=== PATIENT | female | born 1970 | race Caucasian/White ===

== ENCOUNTER 2021-07-07 09:03 | Inpatient (IN) ==
[2021-07-07] MEDS ORDERED: SODIUM CHLORIDE 0.9% 500 ML IV STA (09:34)
[2021-07-07] MEDS ORDERED: dexAMETHasone**PF** 10 MG/ML VIAL IV ONE (09:34)
--- NOTE | 2021-07-07 10:13 | XRay Report ---
XR chest 1V portable CLINICAL HISTORY: Worsening dyspnea, COVID pneumonia. COMPARISON STUDY: 07/05/2021 TECHNIQUE: 1 view of the chest FINDINGS: Single frontal view of the chest demonstrates the cardiomediastinal silhouette to be within normal li mits. Compared to the previous examination, patchy interstitial and alveolar opacities are again pres ent bilaterally. The findings are most characteristic of a viral type pneumonitis. Covid 19 pneumonia should be excluded. There is no evidence for pleural effusion. There is no evidence for vascular con gestion. There is no acute osseous pathology. IMPRESSION: Compared to the previous examination, there are again patchy interstitial and alveolar op acities bilaterally characteristic of a viral type pneumonitis and probable Covid 19 pneumonia. ACT 112: Negative or not required by law. Electronically signed by: Reji Sebastian M.D. 07/07/2021 10:12 AM
[2021-07-07 10:24] LABS: Partial Thromboplastin Time 26.5 Seconds (21.0-31.0); Prothrombin Time 10.1 Seconds (9.0-12.0)
[2021-07-07 10:27] LABS: Influenza A virus by PCR Negative (Negative); Influenza B virus by PCR Negative (Negative)
[2021-07-07 10:32] LABS: Alanine Aminotransferase 49 U/L (12-78); Albumin Level 2.7 gm/dl (3.4-5.0); Aspartate Aminotransferase 61 U/L (15-37); BUN Creatinine Ratio 17.9 (10-20); Blood Urea Nitrogen 11 mg/dl (7-18); Carbon Dioxide 28 mmol/L (21-32); Chloride 103 mmol/L (98-107); Est GFR (African American) 122.1 ml/min; Est GFR (Non-African American) 105.3 ml/min; Glucose 153 mg/dl (70-99); Potassium 3.2 mmol/L (3.5-5.1); Sodium 139 mmol/L (136-145)
[2021-07-07 10:33] LABS: Basophils # (auto) 0.01 K/uL (0-0.2); Basophils % (auto) 0.2 %; Hemoglobin 12.6 g/dL (12.0-16.0); Immature Granulocytes # (auto) 0.01 K/uL (0.00-0.02); Immature Granulocytes % (auto) 0.2 %; Lymphocytes # (auto) 0.52 K/uL (1.2-3.4); Lymphocytes % (auto) 8.5 %; Mean Corpuscular Hemoglobin 28.8 pg (25-34); Mean Corpuscular Hgb Conc 34.1 g/dL (32-36); Mean Corpuscular Volume 84.5 fL (80-100); Mean Platelet Volume 9.8 fL (7.4-10.4); Monocytes # (auto) 0.32 K/uL (0.11-0.59); Monocytes % (auto) 5.2 %; Neutrophils # (auto) 5.29 K/uL (1.4-6.5); Neutrophils % (auto) 85.9 %; Platelet Count 179 K/uL (130-400); RDW Coefficient of Variation 12.7 % (11.5-14.5); RDW Standard Deviation 39.1 fL (36.4-46.3); Red Blood Count 4.38 M/uL (4.2-5.4); White Blood Count 6.15 K/uL (4.8-10.8)
[2021-07-07 10:38] LABS: Albumin Globulin Ratio 0.6 (0.9-2); Alkaline Phosphatase 50 U/L (45-117); Bilirubin,Total 0.7 mg/dl (0.2-1); Globulin 4.2 gm/dl (2.5-4.0); Total Protein 6.9 gm/dl (6.4-8.2); Troponin I < 0.015 ng/ml (0-0.045)
[2021-07-07] MEDS ORDERED: REMDESIVIR 200 MG in SODIUM CHLORIDE 0.9% 210 ML IV STA (11:12)
[2021-07-07] MEDS ORDERED: POTASSIUM CHLORIDE / WTR 10 MEQ/100 ML PLCT IV ONE (11:14)
--- NOTE | 2021-07-07 11:26 | Emergency Department Note ---
History of Present Illness General Chief complaint: Respiratory Problems Stated complaint: COVID POSITIVE/LOW OXYGEN LEVEL Time Seen by Provider: 07/07/21 09:17 History of Present Illness Maximum Pain Intensity: 8 50-year-old female who returns to the emergency department with complaint of worsening shortness of breath, weakness and overall not feeling well after being infected with COVID-19 approximately 9 to 10 days ago. The patient reports a nonproductive cough. She denies any recent fever or chills. The patient was seen in the emergency department 2 days ago with chest x-ray showing pneumonia. The patient was provided prescriptions for an albuterol inhaler, cough medication an d prednisone. The patient has taken 3 doses of prednisone at this point. The patient reports that she does have a pulse oximeter at home, and reported that her readings this morning were between 81 and 87%. Her daughter recommended that she come to the emergency department for further reevaluation. The patient is unvaccinated for COVID-19 and influenza. Her also recently developed similar symptoms, and is awaiting COVID-19 test results. Home Medications Medication Instructions Recorded Confirmed Type albuterol sulfate 90 mcg/actuation 2 puffs INHALATION Q4H PRN #8.5 g 07/05/21 07/07/21 Rx aerosol inhaler benzonatate 200 mg capsule 200 mg PO Q6H PRN #20 cap 07/05/21 07/07/21 Rx ondansetron 4 mg disintegrating 4 mg PO Q6H PRN #20 tab 07/05/21 07/07/21 Rx tablet prednisone 20 mg tablet 20 mg PO DAILY #18 tab 07/05/21 07/07/21 Rx ibuprofen 200 mg tablet 200 mg PO Q6H PRN 07/07/21 07/07/21 History Allergies Allergy/AdvReac Type Severity Reaction Status Date / Time Penicillins Allergy Rash Unverified 07/07/21 10:16 Egg Derived AdvReac Gastrointestinal Unverified 07/07/21 10:16 Upset Past Med/Surg History Medical History Prediabetes Surgical History H/O cleft lip repair H/O: hysterectomy Family History Father Myocardial infarction Denies family history of Ovarian cancer Prostate cancer Breast cancer Colorectal cancer Social History Smoking Status: Never smoker Hx Alcohol Use: Yes Alcohol type: wine Alcohol Intake Frequency: Monthly or Less Hx Substance Use: No Preferred Language: Frisian Communication Ability: Effective Welcome Center Attendant Required: No Beliefs That Will Affect Care: None marital status: Current Living Situation: Spouse and Family current occupational status: employed current occupation: [employer] HELPER Feels Safe at Home: Yes Safety Concerns: Feels Safe At This Time Childhood Exposure to Second-Hand Smoke: Yes Dental Care, Regularly: Yes Physical Activity Frequency: Does not Exercise Seatbelt Use: always Sunscreen Use: Yes Assistive Devices: None and Glasses Review of Systems 10 system review was performed and was negative except for pertinent positives and negatives as indicated in history of present illness Physical Exam Vital Signs Vital Signs - 24 hr 07/07/21 09:08 07/07/21 09:56 07/07/21 10:23 Temperature 36.5 C Temperature Source Temporal Artery Scan Pulse Rate 88 Pulse Rate [Apical] 74 Respiratory Rate 20 20 Respiratory Rate [Exercises] 24 Respiratory Effort / Characteristics Spontaneous Respiratory Depth Normal Respiratory Pattern Regular Blood Pressure 101/71 Blood Pressure [Right Arm] 111/72 Blood Pressure Mean 81 Blood Pressure Mean [Right Arm] 85 Blood Pressure Position [Right Arm] Sitting Pulse Oximetry 91 93 Pulse Oximetry [Exercises] 92 Oxygen Delivery Method Room Air Room Air Room Air Sepsis Recent Fever Within 48 Hours Yes Sepsis New/Unexplained Change in Mental Status No Sepsis Action Taken by Nursing No Action Required 07/07/21 10:24 Temperature Temperature Source Pulse Rate Pulse Rate [Apical] 71 Respiratory Rate Respiratory Rate [Exercises] Respiratory Effort / Characteristics Respiratory Depth Respiratory Pattern Blood Pressure Blood Pressure [Right Arm] 113/73 Blood Pressure Mean Blood Pressure Mean [Right Arm] 86 Blood Pressure Position [Right Arm] Pulse Oximetry Pulse Oximetry [Exercises] Oxygen Delivery Method Sepsis Recent Fever Within 48 Hours Sepsis New/Unexplained Change in Mental Status Sepsis Action Taken by Nursing CONSTITUTIONAL: Healthy and well nourished. Patient does not appear acutely ill or toxic. HEENT: Normocephalic, atraumatic. No rhinorrhea or conjunctival injection. NECK: Full active range of motion without discomfort. LYMPHATICS: No cervical chain adenopathy. RESPIRATORY: Clear to auscultation bilaterally with no wheezing, crackles, rhonchi or stridor. CARDIOVASCULAR: Regular rate and rhythm with no murmurs, rubs or gallops. GASTROINTESTINAL: Bowel sounds present in all quadrants. Soft and nontender to palpation. MUSCULOSKELETAL: Full range of motion of all joints without discomfort. INTEGUMENTARY: No rash or other significant dermatologic conditions noted. HEMATOLOGIC: No ecchymosis or petechiae. PSYCHIATRIC: Positive affect. NEUROLOGIC: No focal neurologic deficits noted. Course Course Patient history and physical exam were performed. Nurses notes were reviewed. Vital signs were reviewed, showing a pulse ox of 91% on room air in triage. The patient was afebrile and not tachycardic. Patient did not appear in any acute respiratory distress on my exam. Given her hypoxia at home, I did explain that she would likely require admission for further management; the patient was in agreement to do so. IV access was established, and labs were drawn. The patient was hydrated with a normal saline 500 cc bolus. She was administered Decadron 10 mg IVP. An ECG was performed and was normal. Portable chest ray continues to show pneumonia without significant worsening when compared to her prior chest x-ray. Review of labs shows a normal white count, as compared to a leukopenia and thrombocytopenia from yesterday. Patient is hypokalemia at 3.2 with an elevated glucose of 153. AST is also mildly elevated at 61. Patient did have a positive COVID-19 PCR test, and negative influenza screen. The case was further discussed with the [facility] hospitalist service, who will be admitting the patient. The hospitalist service also indicated that they would order a K rider for the hypokalemia. Please see their dictation for further treatment and final disposition. Administered Medications Enoxaparin Sodium (Enoxaparin Inj 30 Mg/0.3 Ml Syr) 30 mg SQ Q12 [facility] Stop: 08/06/21 12:29 Last Admin: 07/07/21 14:13 Dose: 30 mg Documented by: [id number] Sodium Chloride (Sodium Chloride 0.9% 10ml Flush) 30 ml IV DAILY@1200 [facility] Stop: 07/11/21 12:01 Last Admin: 07/07/21 12:48 Dose: 30 ml Documented by: [id number] Discontinued Medications Dexamethasone Sodium Phosphate (DexamethasonePf 10 Mg/Ml Vial) 10 mg IV NOW ONE Stop: 07/07/21 09:35 Last Admin: 07/07/21 09:54 Dose: 10 mg Documented by: [id number] Sodium Chloride (Nss) 500 mls @ 999 mls/hr IV .Q31M STA Stop: 07/07/21 10:04 Last Infusion: 07/07/21 10:24 Dose: 0 mls/hr Documented by: [id number] Admin: 07/07/21 09:53 Dose: 999 mls/hr Documented by: [id number] Remdesivir 200 mg/ Sodium (Chloride) 250 mls @ 125 mls/hr IV ONE STA; Protocol Stop: 07/07/21 13:11 Last Infusion: 07/07/21 15:18 Dose: 0 mls/hr Documented by: [id number] Admin: 07/07/21 12:48 Dose: 125 mls/hr Documented by: [id number] Potassium Chloride (K [place] / Wtr) 10 meq in 100 mls @ 100 mls/hr IV Q1H ONE Stop: 07/07/21 12:13 Last Infusion: 07/07/21 12:54 Dose: 0 mls/hr Documented by: [id number] Admin: 07/07/21 11:26 Dose: 100 mls/hr Documented by: [id number] Potassium Chloride (Potassium Chloride 20 Meq/15 Ml Udc) 40 meq PO ONE ONE Stop: 07/07/21 14:01 Last Admin: 07/07/21 14:14 Dose: 40 meq Documented by: [id number] Medical Decision Making Medical Records Attestation: I reviewed the patient's medical records. Home Medications Current Medication List: was personally reviewed by me Laboratory Data Attestation: I reviewed the patient's lab results. Result diagrams: 07/07/21 10:05 07/07/21 10:05 Lab Results 07/07/21 07/07/21 07/07/21 Range/Units 10:00 10:00 10:05 WBC 6.15 (4.8-10.8) K/uL RBC 4.38 (4.2-5.4) M/uL Hgb 12.6 (12.0-16.0) g/dL Hct 37.0 (37-47) % MCV 84.5 (80-100) fL MCH 28.8 (25-34) pg MCHC 34.1 (32-36) g/dL RDW Std Deviation 39.1 (36.4-46.3) fL RDW Coeff of Hannah 12.7 (11.5-14.5) % Plt Count 179 D (130-400) K/uL MPV 9.8 (7.4-10.4) fL Immature Gran % (Auto) 0.2 % Neut % (Auto) 85.9 % Lymph % (Auto) 8.5 % Barbour % (Auto) 5.2 % Eos % (Auto) 0.0 % Baso % (Auto) 0.2 % Neut # (Auto) 5.29 (1.4-6.5) K/uL Lymph # (Auto) 0.52 L (1.2-3.4) K/uL Barbour # (Auto) 0.32 (0.11-0.59) K/uL Eos # (Auto) 0.00 (0-0.5) K/uL Baso # (Auto) 0.01 (0-0.2) K/uL Immature Gran # (Auto) 0.01 (0.00-0.02) K/uL PT (9.0-12.0) Seconds INR (0.9-1.1) APTT (21.0-31.0) Seconds PTT Ratio Sodium (136-145) mmol/L Potassium (3.5-5.1) mmol/L Chloride (98-107) mmol/L Carbon Dioxide (21-32) mmol/L Anion Gap (3-11) BUN (7-18) mg/dl Creatinine (0.6-1.2) mg/dl Est Cr Clr Drug Dosing ml/min Est GFR ( Amer) ml/min Est GFR (Non-Af Amer) ml/min BUN/Creatinine Ratio (10-20) Glucose (70-99) mg/dl Calcium (8.5-10.1) mg/dl Total Bilirubin (0.2-1) mg/dl AST (15-37) U/L ALT (12-78) U/L Alkaline Phosphatase (45-117) U/L Troponin I (0-0.045) ng/ml Total Protein (6.4-8.2) gm/dl Albumin (3.4-5.0) gm/dl Globulin (2.5-4.0) gm/dl Albumin/Globulin Ratio (0.9-2) SARS-CoV-2 (PCR) POSITIVE A* (Negative) Influ A Molecular Assay Negative (Negative) Influ B Molecular Assay Negative (Negative) 07/07/21 07/07/21 Range/Units 10:05 10:05 WBC (4.8-10.8) K/uL RBC (4.2-5.4) M/uL Hgb (12.0-16.0) g/dL Hct (37-47) % MCV (80-100) fL MCH (25-34) pg MCHC (32-36) g/dL RDW Std Deviation (36.4-46.3) fL RDW Coeff of Hannah (11.5-14.5) % Plt Count (130-400) K/uL MPV (7.4-10.4) fL Immature Gran % (Auto) % Neut % (Auto) % Lymph % (Auto) % Barbour % (Auto) % Eos % (Auto) % Baso % (Auto) % Neut # (Auto) (1.4-6.5) K/uL Lymph # (Auto) (1.2-3.4) K/uL [place]bour # (Auto) (0.11-0.59) K/uL Eos # (Auto) (0-0.5) K/uL Baso # (Auto) (0-0.2) K/uL Immature Gran # (Auto) (0.00-0.02) K/uL PT 10.1 (9.0-12.0) Seconds INR 1.0 (0.9-1.1) APTT 26.5 (21.0-31.0) Seconds PTT Ratio 1.0 Sodium 139 (136-145) mmol/L Potassium 3.2 L (3.5-5.1) mmol/L Chloride 103 (98-107) mmol/L Carbon Dioxide 28 (21-32) mmol/L Anion Gap 8.0 (3-11) BUN 11 (7-18) mg/dl Creatinine 0.63 (0.6-1.2) mg/dl Est Cr Clr Drug Dosing 124.0 ml/min Est GFR ( Amer) 122.1 ml/min Est GFR (Non-Af Amer) 105.3 ml/min BUN/Creatinine Ratio 17.9 (10-20) Glucose 153 H (70-99) mg/dl Calcium 8.0 L (8.5-10.1) mg/dl Total Bilirubin 0.7 (0.2-1) mg/dl AST 61 H (15-37) U/L ALT 49 (12-78) U/L Alkaline Phosphatase 50 (45-117) U/L Troponin I < 0.015 (0-0.045) ng/ml Total Protein 6.9 (6.4-8.2) gm/dl Albumin 2.7 L (3.4-5.0) gm/dl Globulin 4.2 H (2.5-4.0) gm/dl Albumin/Globulin Ratio 0.6 L (0.9-2) SARS-CoV-2 (PCR) (Negative) Influ A Molecular Assay (Negative) Influ B Molecular Assay (Negative) Imaging Data Attestation: I personally reviewed and interpreted this imaging study as follows: My Impression: My interpretation of reportable chest x-ray shows a probable patchy pneumonia without evidence for pneumothorax or significant cardiac prominence. Radiologist report was also reviewed. Radiologist's Impression: Chest X-Ray 07/07/21 09:35 XR chest 1V portable CLINICAL HISTORY: Worsening dyspnea, COVID pneumonia. COMPARISON STUDY: 07/05/2021 TECHNIQUE: 1 view of the chest FINDINGS: Single frontal view of the chest demonstrates the cardiomediastinal silhouette to be within normal limits. Compared to the previous examination, patchy in terstitial and alveolar opacities are again present bilaterally. The findings are most characteristic of a viral type pneumonitis. Covid 19 pneumonia should be excluded. There is no evidence for pleural effusion. There is no evidence for vascular congestion. There is no acute osseous pathology. IMPRESSION: Compared to the previous examination, there are again patchy inter stitial and alveolar opacities bilaterally characteristic of a viral type pneumonitis and probable Covid 19 pneumonia. ACT 112: Negative or not required by law. Electronically signed by: eRji Sebastian M.D. 07/07/2021 10:12 AM ECG Data Attestation: I personally reviewed and interpreted this ECG as follows: Indication: + chest pain, + diaphoresis and + SOB/dyspnea Rate (beats per minute): 77 Rhythm: + normal sinus ECG Intervals/blocks: + Normal QRS, + Normal QT and + Normal AL ECG [place]: + Normal ECG ST segments: + Normal ST segments Comparison ECG Date: no prior available Blood Pressure Blood Pressure Findings: Normal blood pressure MDM Narrative Patient presents emergency department with complaint of worsening symptoms secondary to COVID-19 infection. The patient reports an O2 saturation level of between 81 and 87% at home. Even with trial ambulation in the emergency department, her lowest O2 saturation was 91% on room air in triage. I do feel that the patient warrants admission with additional treatment, including remdesivir, corticosteroids and breathing treatments as needed. Patient also has a mild hypokalemia which should be easily corrected. I do not suspect other etiologies such as acute cardiac event or pulmonary embolus. X-ray does not show evidence for pneumothorax. Impression & Plan Hypoxia, Pneumonia due to COVID-19 virus, Acute hypokalemia Discharge Plan Visit Data Chief Complaint: Respiratory Problems Stated Complaint: COVID POSITIVE/LOW OXYGEN LEVEL ED Provider: Mayra Torrez ED Midlevel Provider: Kevin Piña Discharge Problem: Hypoxia, Pneumonia due to COVID-19 virus, Acute hypokalemia Patient Disposition: Admitted As Inpatient Discharge Instructions Interventions: ED Discharge Assessment Last Done: 07/07/21 12:05
--- NOTE | 2021-07-07 11:32 | History & Physical Report ---
Date of Service July 07, 2021 Assessment & Plan (1) Pneumonia due to COVID-19 virus: (2) Hypoxia: (3) Prediabetes: (4) Hypokalemia: Plan: COVID pneumonia with hypoxia: - Tested positive for COVID on: 07/02 - symptoms onset on: 06/28 - CXR: finding suggestive of viral pneumonia -Normal GFR but slight increase in AST -will start the pt on Remdesivir and Dexamethasone -for now pt is maintaining SpO2>93 in room air -encourage frequent change of position (including proning) -daily CMP and CRP -DVT ppx ordered HypoK+: -repleted Diet: DMII DVT PPx: Lovenox Code Status:FULL CODE Emergency Contact: Daughter- Declan [phone] History of Present Illness Chief Complaint: SOB Primary Care Provider: NO PCP Pt is a 50 y/o F with hx of prediabetes, cleft lip s/p repair came in to the ER with worsening SOB, cough and chest pressure. She was dx with COVID on 07/02 and her symptoms started on 06/28. She was seen in the ER on 07/05 and sent home on prednisone taper and Zofran. Per pt Zofran helped a lot with N/V and diarrhea but her SOB gotten worse. Denied any hx of COPD/Asthma/Smoking. In the ER pt received 1/2L NS and Dexamethason 10mg IV Allergies Allergy/AdvReac Type Severity Reaction Status Date / Time Penicillins Allergy Rash Unverified 07/07/21 10:16 Egg Derived AdvReac Gastrointestinal Unverified 07/07/21 10:16 Upset Home Medications Medication Instructions Recorded Confirmed Type albuterol sulfate 90 mcg/actuation 2 puffs INHALATION Q4H PRN #8.5 g 07/05/21 07/07/21 Rx aerosol inhaler benzonatate 200 mg capsule 200 mg PO Q6H PRN #20 cap 07/05/21 07/07/21 Rx ondansetron 4 mg disintegrating 4 mg PO Q6H PRN #20 tab 07/05/21 07/07/21 Rx tablet prednisone 20 mg tablet 20 mg PO DAILY #18 tab 07/05/21 07/07/21 Rx ibuprofen 200 mg tablet 200 mg PO Q6H PRN 07/07/21 07/07/21 History Past Med/Surg History Medical History Prediabetes Surgical History H/O cleft lip repair H/O: hysterectomy Family History Father Myocardial infarction Denies family history of Ovarian cancer Prostate cancer Breast cancer Colorectal cancer Social History Smoking Status: Never smoker Hx Alcohol Use: Yes Alcohol type: wine Alcohol Intake Frequency: Monthly or Less Hx Substance Use: No Preferred Language: Hungarian Communication Ability: Effective marital status: Current Living Situation: Spouse and Family current occupational status: employed current occupation: BACK DIGGER OPERATOR Feels Safe at Home: Yes Childhood Exposure to Second-Hand Smoke: Yes Dental Care, Regularly: Yes Physical Activity Frequency: Does not Exercise Seatbelt Use: always Sunscreen Use: Yes Review of Systems Review of Systems: At least 10 Review of systems were reviewed and all negative except as indicated in HPI Physical Exam Physical Exam: General:. NAD, well developed, well nourished, average body habitus HEENT:. Normocephalic and atraumatic, Normal Conjunctiva, EOMI, Sclera is non- icteric Lungs:.good air entry b/l with b/l lower lobe rales Heart:. Normal S1, S2, no murmur Abdominal:. ND, Soft, NT MSK:. No deformities of UE and LE, No leg edema Psych:. AAOx3, normal affect Results & Data Results & Data ([facility]) Vital Signs (Past 12 Hours) Vital Signs Temp Pulse Pulse Resp Resp BP BP 07/07/21 11:05 68 20 113/73 07/07/21 10:24 71 113/73 07/07/21 10:23 24 07/07/21 09:56 74 20 111/72 07/07/21 09:08 36.5 C 88 20 101/71 Pulse Ox Pulse Ox 07/07/21 11:05 93 07/07/21 10:24 07/07/21 10:23 92 07/07/21 09:56 93 07/07/21 09:08 91 Laboratory Results Short CBC 07/07/21 Range/Units 10:05 WBC 6.15 (4.8-10.8) K/uL Hgb 12.6 (12.0-16.0) g/dL Hct 37.0 (37-47) % Plt Count 179 D (130-400) K/uL BMP 07/07/21 10:05 Sodium 139 Potassium 3.2 L Chloride 103 Carbon Dioxide 28 BUN 11 Creatinine 0.63 Glucose 153 H Calcium 8.0 L Cardiac Enzymes 07/07/21 Range/Units 10:05 Troponin I < 0.015 (0-0.045) ng/ml Liver Function 07/07/21 Range/Units 10:05 Total Bilirubin 0.7 (0.2-1) mg/dl AST 61 H (15-37) U/L ALT 49 (12-78) U/L Alkaline Phosphatase 50 (45-117) U/L Albumin 2.7 L (3.4-5.0) gm/dl Diagnostic Findings Chest X-Ray 07/07/21 09:35 XR chest 1V portable CLINICAL HISTORY: Worsening dyspnea, COVID pneumonia. COMPARISON STUDY: 07/05/2021 TECHNIQUE: 1 view of the chest FINDINGS: Single frontal view of the chest demonstrates the cardiomediastinal silhouette to be within normal limits. Compared to the previous examination, patchy interstitial and alveolar opacities are again present bilaterally. The findings are most characteristic of a viral type pneumonitis. Covid 19 pneumonia should be excluded. There is no evidence for pleural effusion. There is no evidence for vascular congestion. There is no acute osseous pathology. IMPRESSION: Compared to the previous examination, there are again patchy interstitial and alveolar opacities bilaterally characteristic of a viral type pneumonitis and probable Covid 19 pneumonia. ACT 112: Negative or not required by law. Electronically signed by: Reji Sebastian M.D. 07/07/2021 10:12 AM Code Status & VTE Plan Code Status FULL CODE VTE Prophylaxis Plan VTE Prophylaxis will be ordered: Yes
[2021-07-07 11:42] LABS: Appearance Urine Clear (Clear); Bacteria Urine Automated Negative (Negative); Bilirubin Urine Negative (Negative); Blood Urine 1+ (Negative); Cast Urine Automated 0 /lpf (0-5); Color Urine Yellow; Epithelial Cell Urine Auto 20-30 /lpf (0-5); Glucose Urine UA Negative (Negative); Ketones Urine Negative (Negative); Leukocyte Esterase Urine Negative (Negative); Nitrite Urine Negative (Negative); Protein Urine 1+ (Negative); RBC Urine Automated 0-4 /hpf (0-4); Specific Gravity Urine 1.007 (1.000-1.030); Urobilinogen Urine Negative (Negative)
[2021-07-07] MEDS: SODIUM CHLORIDE 0.9% 10ML FLUSH IV SCH (12:48)
[2021-07-07] MEDS ORDERED: POTASSIUM CHLORIDE 20 MEQ/15 ML UDC PO ONE (14:00)
[2021-07-07] MEDS: ENOXAPARIN INJ 30 MG/0.3 ML SYR SQ SCH ×2 (14:13→20:27)
[2021-07-08] MEDS: ONDANSETRON INJ 2 MG/ML 2 ML VIAL IV PRN ×2 (04:11→21:26)
[2021-07-08 08:26] LABS: Basophils # (auto) 0.01 K/uL (0-0.2); Basophils % (auto) 0.2 %; Hematocrit (blood only) 38.1 % (37-47); Hemoglobin 12.5 g/dL (12.0-16.0); Immature Granulocytes # (auto) 0.03 K/uL (0.00-0.02); Immature Granulocytes % (auto) 0.5 %; Lymphocytes # (auto) 0.63 K/uL (1.2-3.4); Lymphocytes % (auto) 11.5 %; Mean Corpuscular Hemoglobin 28.3 pg (25-34); Mean Corpuscular Hgb Conc 32.8 g/dL (32-36); Mean Corpuscular Volume 86.4 fL (80-100); Mean Platelet Volume 9.9 fL (7.4-10.4); Monocytes # (auto) 0.48 K/uL (0.11-0.59); Monocytes % (auto) 8.8 %; Neutrophils # (auto) 4.31 K/uL (1.4-6.5); Platelet Count 201 K/uL (130-400); RDW Coefficient of Variation 12.9 % (11.5-14.5); RDW Standard Deviation 41.5 fL (36.4-46.3); Red Blood Count 4.41 M/uL (4.2-5.4); White Blood Count 5.46 K/uL (4.8-10.8)
[2021-07-08] MEDS: dexAMETHasone 6 MG in SYRINGE 0 ML IV SCH (08:56)
[2021-07-08] MEDS: ENOXAPARIN INJ 30 MG/0.3 ML SYR SQ SCH ×2 (08:56→21:26)
[2021-07-08 09:09] LABS: Albumin Globulin Ratio 0.6 (0.9-2); Albumin Level 2.6 gm/dl (3.4-5.0); BUN Creatinine Ratio 20.8 (10-20); Bilirubin,Total 0.5 mg/dl (0.2-1); C Reactive Protein 6.34 mg/dl (0-0.29); Calcium 8.3 mg/dl (8.5-10.1); Creatinine Clr Calc Pharmacy 125.9 ml/min; Est GFR (African American) 122.7 ml/min; Est GFR (Non-African American) 105.9 ml/min; Globulin 4.5 gm/dl (2.5-4.0); Potassium 3.9 mmol/L (3.5-5.1); Total Protein 7.1 gm/dl (6.4-8.2)
[2021-07-08] MEDS: SODIUM CHLORIDE 0.9% 10ML FLUSH IV SCH (11:38)
[2021-07-08] MEDS: REMDESIVIR 100 MG in SODIUM CHLORIDE 0.9% 230 ML IV SCH (11:38)
--- NOTE | 2021-07-08 13:27 | Hospitalist Progress Note ---
Date of Service July 08, 2021 Assessment & Plan (1) Pneumonia due to COVID-19 virus: (2) Hypoxia: (3) Prediabetes: (4) Hypokalemia: Plan: COVID pneumonia Acute hypoxic respiratory failure: Symptoms started on 06/28/2021. Tested positive for COVID on: 07/02 CXR: finding suggestive of viral pneumonia Normal GFR but slight increase in AST Continue dexamethasone and remdesivir. Continue to monitor LFTs and inflammatory markers Educated on self proning. Incentive spirometry and flutter Continue oxygen supplementation and wean as tolerated Monitor inflammatory markers Hypokalemia Repleted and resolved Monitor Diet: DMII DVT PPx: Lovenox Code Status:FULL CODE Emergency Contact: David Manriquez [phone] Admission and Anticipated Discharge Date Admission Date: July 07, 2021 Subjective 50-year-old woman with history of prediabetes, cleft lip status post repair who presented with cough, worsening shortness of breath and chest pressure. Being managed for acute hypoxic respiratory failure due to COVID-19 pneumonia. Seen and examined this afternoon. Reports significant improvements in shortness of breath. Denies any chest pain Reports some nausea and poor appetite. Denies any abdominal pain, diarrhea Denies any palpitations, dizziness Denies any dysuria, frequency, urgency Physical Exam Constitutional: + well hydrated; no acute distress Eyes: PERRL, conjunctivae normal, anicteric sclerae ENMT: external ear and nose normal, oropharynx normal Respiratory: Not in respiratory distress, on 4 L/min nasal oxygen, diminished breath sounds bilaterally Cardiovascular: RRR, no murmur, no edema Gastrointestinal (Abdomen): normal bowel sounds, soft, nontender, no hepatosplenomegaly Musculoskeletal: no cyanosis or clubbing, extremities motor strength 5/5 Neurologic: PERRL, EOMI, accommodation nl, no face palsy, no dysarthria Psychiatric: A+Ox3, euthymic affect Results & Data Results & Data ([facility]) Vital Signs (Past 12 Hours) Vital Signs Temp Pulse Pulse Resp BP Pulse Ox 07/08/21 11:29 36.6 C 65 20 118/77 94 07/08/21 10:10 57 L 07/08/21 07:37 36.5 C 67 18 109/78 93 07/08/21 03:53 36.9 C 72 16 116/76 98 Laboratory Results Abnormal lab results 07/08/21 07/08/21 Range/Units 07:56 07:56 Lymph # (Auto) 0.63 L (1.2-3.4) K/uL Immature Gran # (Auto) 0.03 H (0.00-0.02) K/uL BUN/Creatinine Ratio 20.8 H (10-20) Glucose 152 H (70-99) mg/dl Calcium 8.3 L (8.5-10.1) mg/dl AST 38 H (15-37) U/L C-Reactive Protein 6.34 H (0-0.29) mg/dl Albumin 2.6 L (3.4-5.0) gm/dl Globulin 4.5 H (2.5-4.0) gm/dl Albumin/Globulin Ratio 0.6 L (0.9-2)
--- NOTE | 2021-07-08 15:35 | Electrocardiogram Report ---
Test Reason : Blood Pressure : / mmHG Vent. Rate : 077 BPM Atrial Rate : 077 BPM P-R Int : 146 ms QRS Dur : 086 ms QT Int : 424 ms P-R-T Axes : 029 012 011 degrees QTc Int : 479 ms Normal sinus rhythm Normal ECG No previous ECGs available Confirmed by Inder Alfredo ([id number]) on 07/08/2021 3:35:09 PM Referred By: REFERRED SELF Confirmed By:Inder Alfredo
[2021-07-09 07:23] LABS: Hematocrit (blood only) 36.1 % (37-47); Hemoglobin 11.8 g/dL (12.0-16.0); Mean Corpuscular Hemoglobin 28.4 pg (25-34); Mean Corpuscular Hgb Conc 32.7 g/dL (32-36); Mean Corpuscular Volume 86.8 fL (80-100); Mean Platelet Volume 9.9 fL (7.4-10.4); Platelet Count 204 K/uL (130-400); RDW Coefficient of Variation 13.2 % (11.5-14.5); RDW Standard Deviation 42.2 fL (36.4-46.3); Red Blood Count 4.16 M/uL (4.2-5.4); White Blood Count 5.29 K/uL (4.8-10.8)
[2021-07-09 07:40] LABS: D Dimer 1140 ug/L FEU (0-500)
[2021-07-09 07:55] LABS: Albumin Level 2.4 gm/dl (3.4-5.0); BUN Creatinine Ratio 36.7 (10-20); C Reactive Protein 2.75 mg/dl (0-0.29); Calcium 8.4 mg/dl (8.5-10.1); Creatinine Clr Calc Pharmacy 152.2 ml/min; Est GFR (African American) 130.9 ml/min; Est GFR (Non-African American) 112.9 ml/min; Magnesium 2.5 mg/dl (1.8-2.4); Potassium 4.1 mmol/L (3.5-5.1)
[2021-07-09 08:00] LABS: Albumin Globulin Ratio 0.6 (0.9-2); Bilirubin,Total 0.4 mg/dl (0.2-1); Globulin 3.8 gm/dl (2.5-4.0); Total Protein 6.2 gm/dl (6.4-8.2)
[2021-07-09] MEDS ORDERED: OPTIRAY 320 125ml IV ONE (08:20)
[2021-07-09] MEDS: ENOXAPARIN INJ 30 MG/0.3 ML SYR SQ SCH ×2 (08:59→20:32)
[2021-07-09] MEDS: dexAMETHasone 6 MG in SYRINGE 0 ML IV SCH (08:59)
--- NOTE | 2021-07-09 09:45 | CT Scan Report ---
CT ANGIOGRAPHY OF THE CHEST, PULMONARY EMBOLUS PROTOCOL CLINICAL HISTORY: COVID PNA, hypoxic. Evaluate for pulmonary embolus. COMPARISON STUDY: Chest radiograph July 07, 2021. TECHNIQUE: Following IV administration of 119 mL of Optiray, helical axial images of the chest were o btained utilizing the pulmonary embolus protocol. Maximal intensity projections and sagittal and cor onal reformats were viewed on an independent 3D workstation. IV contrast was administered without co mplication. Automated exposure control was utilized for the study. A dose lowering technique was ut ilized adhering to the principles of ALARA. CT DOSE: 533.64 mGy.cm FINDINGS: No pulmonary emboli are identified. There is mild cardiomegaly. No pericardial effusion is noted. No pathologically enlarged thoracic lymph nodes are present. There is no pneumothorax or pleu ral effusion. Moderate multifocal consolidation and ground glass opacities throughout the lungs are n oted. There is no pneumothorax or pleural effusion. There is no cavitation. No acute fracture or susp icious lesion is identified within visualized portions of the bony thorax. IMPRESSION: 1. No pulmonary emboli identified. 2. Multifocal consolidation and groundglass opacities within lungs consistent with viral pneumonia. ACT 112: Negative or not required by law. Electronically signed by: Paulo Loving M.D. 07/09/2021 9:43 AM
[2021-07-09] MEDS: REMDESIVIR 100 MG in SODIUM CHLORIDE 0.9% 230 ML IV SCH (12:10)
[2021-07-09] MEDS: SODIUM CHLORIDE 0.9% 10ML FLUSH IV SCH (13:35)
[2021-07-09] MEDS ORDERED: FUROSEMIDE INJ 20 MG/2 ML VIAL IV ONE (15:35)
--- NOTE | 2021-07-09 15:37 | Hospitalist Progress Note ---
Date of Service July 09, 2021 Assessment & Plan (1) Pneumonia due to COVID-19 virus: (2) Hypoxia: (3) Prediabetes: (4) Hypokalemia: Plan: COVID pneumonia Acute hypoxic respiratory failure: Symptoms started on 06/28/2021. Tested positive for COVID on: 07/02 CXR: finding suggestive of viral pneumonia Continue dexamethasone and remdesivir. Continue to monitor LFTs while on remdesivir Continue Incentive spirometry and flutter Continue oxygen supplementation and wean as tolerated Monitor inflammatory markers. CRP trending down CT PE was negative for PE Give one dose of lasix Albuterol prn Trial of BIPAP/CPAP HS Hypokalemia Repleted and resolved Monitor Diet: DMII DVT PPx: Lovenox Code Status:FULL CODE Emergency Contact: David Manriquez [phone] Admission and Anticipated Discharge Date Admission Date: July 07, 2021 Subjective 50-year-old woman with history of prediabetes, cleft lip status post repair who presented with cough, worsening shortness of breath and chest pressure. Being managed for acute hypoxic respiratory failure due to COVID-19 pneumonia. Seen and examined this afternoon. Reports chest tightness and increased shortness of breath at nighttime Denies any chest pain Reports some nausea Still has poor appetite Denies any abdominal pain, diarrhea Denies any palpitations, dizziness Denies any dysuria, frequency, urgency Physical Exam Constitutional: + well hydrated; no acute distress Eyes: PERRL, conjunctivae normal, anicteric sclerae ENMT: external ear and nose normal, oropharynx normal Respiratory: On 4l/min nasal oxygen Diminished breath sounds Cardiovascular: RRR, no murmur, no edema Gastrointestinal (Abdomen): normal bowel sounds, soft, nontender, no hepatosplenomegaly Musculoskeletal: no cyanosis or clubbing, extremities motor strength 5/5 Neurologic: PERRL, EOMI, accommodation nl, no face palsy, no dysarthria Psychiatric: A+Ox3, euthymic affect Results & Data Results & Data ([facility]) Vital Signs (Past 12 Hours) Vital Signs Temp Pulse Resp BP Pulse Ox 07/09/21 15:04 36.5 C 45 L 16 114/65 94 07/09/21 11:04 36.5 C 72 18 123/65 93 07/09/21 07:48 36.7 C 52 L 18 136/87 93 07/09/21 04:06 36.5 C 18 108/66 90 Laboratory Results Abnormal lab results 07/09/21 07/09/21 07/09/21 Range/Units 07:00 07:00 07:00 RBC 4.16 L (4.2-5.4) M/uL Hgb 11.8 L (12.0-16.0) g/dL Hct 36.1 L (37-47) % D-Dimer 1140 H* (0-500) ug/L FEU Chloride 109 H (98-107) mmol/L BUN 19 H (7-18) mg/dl Creatinine 0.51 L (0.6-1.2) mg/dl BUN/Creatinine Ratio 36.7 H (10-20) Glucose 143 H (70-99) mg/dl Calcium 8.4 L (8.5-10.1) mg/dl Magnesium 2.5 H (1.8-2.4) mg/dl Alkaline Phosphatase 42 L (45-117) U/L C-Reactive Protein 2.75 H (0-0.29) mg/dl Total Protein 6.2 L (6.4-8.2) gm/dl Albumin 2.4 L (3.4-5.0) gm/dl Albumin/Globulin Ratio 0.6 L (0.9-2)
[2021-07-09] MEDS: ALBUTEROL 0.083% NEBU SOLN 3 ML VIAL NEB PRN (22:27)
[2021-07-10 06:06] LABS: Hematocrit (blood only) 37.1 % (37-47); Hemoglobin 12.1 g/dL (12.0-16.0); Mean Corpuscular Hemoglobin 28.1 pg (25-34); Mean Corpuscular Hgb Conc 32.6 g/dL (32-36); Mean Corpuscular Volume 86.3 fL (80-100); Mean Platelet Volume 9.7 fL (7.4-10.4); Platelet Count 234 K/uL (130-400); RDW Coefficient of Variation 12.8 % (11.5-14.5); RDW Standard Deviation 40.8 fL (36.4-46.3)
[2021-07-10 06:50] LABS: Albumin Level 2.5 gm/dl (3.4-5.0); BUN Creatinine Ratio 26.2 (10-20); Calcium 8.4 mg/dl (8.5-10.1); Est GFR (Non-African American) 102.7 ml/min; Potassium 3.9 mmol/L (3.5-5.1)
[2021-07-10 06:53] LABS: Albumin Globulin Ratio 0.6 (0.9-2); Bilirubin,Total 0.5 mg/dl (0.2-1); Globulin 3.9 gm/dl (2.5-4.0); Total Protein 6.4 gm/dl (6.4-8.2)
[2021-07-10] MEDS: ENOXAPARIN INJ 30 MG/0.3 ML SYR SQ SCH ×2 (09:36→20:57)
[2021-07-10] MEDS: dexAMETHasone 6 MG in SYRINGE 0 ML IV SCH (09:36)
--- NOTE | 2021-07-10 11:59 | Hospitalist Progress Note ---
Date of Service July 10, 2021 Assessment & Plan (1) Pneumonia due to COVID-19 virus: (2) Hypoxia: (3) Prediabetes: (4) Hypokalemia: Plan: COVID pneumonia Acute hypoxic respiratory failure: Symptoms started on 06/28/2021. Tested positive for COVID on: 07/02 CXR: finding suggestive of viral pneumonia Continue dexamethasone and remdesivir. Continue to monitor LFTs while on remdesivir Continue Incentive spirometry and flutter Counselled on self proning Continue oxygen supplementation and wean as tolerated Monitor inflammatory markers. CT PE was negative for PE Will give lasix 20mg today Albuterol prn Trial of BIPAP/CPAP HS Hypokalemia Repleted and resolved Monitor Diet: DMII DVT PPx: Lovenox Code Status:FULL CODE Emergency Contact: David Manriquez [phone] Admission and Anticipated Discharge Date Admission Date: July 07, 2021 Subjective 50-year-old woman with history of prediabetes, cleft lip status post repair who presented with cough, worsening shortness of breath and chest pressure. Being managed for acute hypoxic respiratory failure due to COVID-19 pneumonia. Seen and examined this afternoon. Reported she slept better last night after breathing treatment Denies any chest pain Reports mild exertional dyspnea No nausea. Has poor appetite Denies any abdominal pain, diarrhea Denies any palpitations, dizziness Denies any dysuria, frequency, urgency Physical Exam Constitutional: + well hydrated; no acute distress Eyes: PERRL, conjunctivae normal, anicteric sclerae ENMT: external ear and nose normal, oropharynx normal Respiratory: On 4l/min nasal oxygen. Diminished breath sounds Cardiovascular: HR 52, S1 S2 Gastrointestinal (Abdomen): normal bowel sounds, soft, nontender, no hepatosplenomegaly Musculoskeletal: no cyanosis or clubbing, extremities motor strength 5/5 Neurologic: PERRL, EOMI, accommodation nl, no face palsy, no dysarthria Psychiatric: A+Ox3, euthymic affect Results & Data Results & Data ([facility]) Vital Signs (Past 12 Hours) Vital Signs Temp Pulse Pulse Resp BP BP Pulse Ox 07/10/21 11:11 36.6 C 51 L 18 109/59 L 93 07/10/21 07:43 36.1 C L 47 L 18 139/74 93 07/10/21 04:53 48 L 07/10/21 03:41 36.6 C 60 22 106/53 L 96 Laboratory Results Abnormal lab results 07/10/21 Range/Units 05:23 Carbon Dioxide 33 H (21-32) mmol/L BUN/Creatinine Ratio 26.2 H (10-20) Glucose 160 H (70-99) mg/dl Calcium 8.4 L (8.5-10.1) mg/dl Albumin 2.5 L (3.4-5.0) gm/dl Albumin/Globulin Ratio 0.6 L (0.9-2)
[2021-07-10] MEDS: REMDESIVIR 100 MG in SODIUM CHLORIDE 0.9% 230 ML IV SCH (12:30)
[2021-07-10] MEDS ORDERED: FUROSEMIDE INJ 20 MG/2 ML VIAL IV ONE (12:52)
[2021-07-10] MEDS: SODIUM CHLORIDE 0.9% 10ML FLUSH IV SCH (13:43)
--- NOTE | 2021-07-10 17:20 | Electrocardiogram Report ---
Test Reason : Blood Pressure : / mmHG Vent. Rate : 050 BPM Atrial Rate : 050 BPM P-R Int : 166 ms QRS Dur : 088 ms QT Int : 496 ms P-R-T Axes : 033 007 005 degrees QTc Int : 452 ms Sinus bradycardia with sinus arrhythmia Abnormal ECG When compared with ECG of 07-JUL-2021 09:44, Vent. rate has decreased BY 27 BPM Confirmed by Rajinder Ness ([id number]) on 07/10/2021 5:20:33 PM Referred By: REFERRED SELF Confirmed By:Arron Ness
[2021-07-11] MEDS ORDERED: guaiFENesin/CODEINE 100MG/10MG 5ML UDC PO PRN (01:56)
[2021-07-11] MEDS: ALBUTEROL 0.083% NEBU SOLN 3 ML VIAL NEB PRN (02:05)
[2021-07-11] MEDS: BENZONATATE 100 MG CAPSULE PO SCH ×4 (04:57→20:56)
[2021-07-11] MEDS: ACETAMINOPHEN 325 MG TAB PO PRN ×3 (06:34→20:56)
[2021-07-11 08:21] LABS: Hematocrit (blood only) 39.6 % (37-47); Hemoglobin 13.3 g/dL (12.0-16.0); Mean Corpuscular Hemoglobin 28.8 pg (25-34); Mean Corpuscular Hgb Conc 33.6 g/dL (32-36); Mean Corpuscular Volume 85.7 fL (80-100); Mean Platelet Volume 9.9 fL (7.4-10.4); Platelet Count 248 K/uL (130-400); RDW Coefficient of Variation 12.6 % (11.5-14.5); RDW Standard Deviation 39.4 fL (36.4-46.3); Red Blood Count 4.62 M/uL (4.2-5.4)
[2021-07-11] MEDS: dexAMETHasone 6 MG in SYRINGE 0 ML IV SCH (08:21)
[2021-07-11] MEDS: ENOXAPARIN INJ 30 MG/0.3 ML SYR SQ SCH ×2 (08:21→20:57)
[2021-07-11 08:38] LABS: Albumin Level 2.6 gm/dl (3.4-5.0); BUN Creatinine Ratio 26.9 (10-20); C Reactive Protein 0.99 mg/dl (0-0.29); Calcium 8.6 mg/dl (8.5-10.1); Creatinine Clr Calc Pharmacy 118.4 ml/min; D Dimer 1950 ug/L FEU (0-500); Est GFR (African American) 120.8 ml/min; Est GFR (Non-African American) 104.3 ml/min; Magnesium 2.2 mg/dl (1.8-2.4); Potassium 3.4 mmol/L (3.5-5.1)
[2021-07-11 08:41] LABS: Albumin Globulin Ratio 0.6 (0.9-2); Bilirubin,Total 0.5 mg/dl (0.2-1); Globulin 4.1 gm/dl (2.5-4.0); Total Protein 6.7 gm/dl (6.4-8.2)
[2021-07-11] MEDS: REMDESIVIR 100 MG in SODIUM CHLORIDE 0.9% 230 ML IV SCH (11:53)
[2021-07-11] MEDS: SODIUM CHLORIDE 0.9% 10ML FLUSH IV SCH (12:44)
--- NOTE | 2021-07-11 14:03 | Hospitalist Progress Note ---
Date of Service July 11, 2021 Assessment & Plan (1) Pneumonia due to COVID-19 virus: (2) Hypoxia: (3) Prediabetes: (4) Hypokalemia: Plan: COVID pneumonia Acute hypoxic respiratory failure: Symptoms started on 06/28/2021. Tested positive for COVID on: 07/02 CXR: finding suggestive of viral pneumonia Continue dexamethasone Completed remdesivir today Continue Incentive spirometry and flutter Continue self proning Continue oxygen supplementation and wean as tolerated. Down to 2l/min CT PE was negative for PE Will give lasix 20mg today. Give po potassium as K is 3.4 Albuterol prn Will need 2 step prior to discharge Possible dc in 24-48h if continues to improve with current trend Diet: DMII DVT PPx: Lovenox Code Status:FULL CODE Emergency Contact: David Manriquez [phone] Admission and Anticipated Discharge Date Admission Date: July 07, 2021 Subjective 50-year-old woman with history of prediabetes, cleft lip status post repair who presented with cough, worsening shortness of breath and chest pressure. Being managed for acute hypoxic respiratory failure due to COVID-19 pneumonia. Seen and examined this afternoon. Denies any chest pain Reports exertional dyspnea is improved and doesn't occur often now Denied nausea Reports appetite is improving Still coughing Denies any abdominal pain, diarrhea Denies any palpitations, dizziness Denies any dysuria, frequency, urgency Physical Exam Constitutional: + well hydrated; no acute distress Eyes: PERRL, conjunctivae normal, anicteric sclerae ENMT: external ear and nose normal, oropharynx normal Respiratory: On nasal cannula, diminished breath sounds Scattered crackles Cardiovascular: RRR, no murmur, no edema Gastrointestinal (Abdomen): normal bowel sounds, soft, nontender, no hepatosplenomegaly Musculoskeletal: no cyanosis or clubbing, extremities motor strength 5/5 Neurologic: PERRL, EOMI, accommodation nl, no face palsy, no dysarthria Psychiatric: A+Ox3, euthymic affect Results & Data Results & Data ([facility]) Vital Signs (Past 12 Hours) Vital Signs Temp Pulse Pulse Resp BP Pulse Ox 07/11/21 11:37 36.8 C 53 L 18 104/73 95 07/11/21 08:00 57 L 07/11/21 07:52 18 95 07/11/21 07:39 36.6 C 62 18 115/76 98 07/11/21 03:43 36.6 C 71 18 108/68 94 07/11/21 02:06 16 94 Laboratory Results Abnormal lab results 07/11/21 07/11/21 Range/Units 07:21 07:21 D-Dimer 1950 H* (0-500) ug/L FEU Potassium 3.4 L (3.5-5.1) mmol/L BUN/Creatinine Ratio 26.9 H (10-20) Glucose 129 H (70-99) mg/dl C-Reactive Protein 0.99 H (0-0.29) mg/dl Albumin 2.6 L (3.4-5.0) gm/dl Globulin 4.1 H (2.5-4.0) gm/dl Albumin/Globulin Ratio 0.6 L (0.9-2)
[2021-07-11] MEDS ORDERED: FUROSEMIDE INJ 20 MG/2 ML VIAL IV ONE (16:26)
[2021-07-11] MEDS ORDERED: POTASSIUM CHLORIDE CRTAB 20 MEQ TABCR PO STA (16:26)
[2021-07-12 07:44] LABS: Hematocrit (blood only) 41.3 % (37-47); Hemoglobin 13.8 g/dL (12.0-16.0); Mean Corpuscular Hemoglobin 28.8 pg (25-34); Mean Corpuscular Hgb Conc 33.4 g/dL (32-36); Mean Platelet Volume 9.9 fL (7.4-10.4); Platelet Count 306 K/uL (130-400); RDW Coefficient of Variation 12.6 % (11.5-14.5); RDW Standard Deviation 40.1 fL (36.4-46.3); White Blood Count 5.89 K/uL (4.8-10.8)
[2021-07-12 08:01] LABS: BUN Creatinine Ratio 28.9 (10-20); Calcium 9.2 mg/dl (8.5-10.1); Creatinine Clr Calc Pharmacy 98.9 ml/min; Est GFR (African American) 105.1 ml/min; Est GFR (Non-African American) 90.7 ml/min; Potassium 3.8 mmol/L (3.5-5.1)
[2021-07-12] MEDS: BENZONATATE 100 MG CAPSULE PO SCH ×3 (08:15→20:39)
[2021-07-12] MEDS: dexAMETHasone 6 MG in SYRINGE 0 ML IV SCH (08:16)
[2021-07-12] MEDS: ENOXAPARIN INJ 30 MG/0.3 ML SYR SQ SCH ×2 (08:16→20:39)
--- NOTE | 2021-07-12 14:58 | Hospitalist Progress Note ---
Date of Service July 12, 2021 Assessment & Plan (1) Pneumonia due to COVID-19 virus: (2) Hypoxia: (3) Prediabetes: (4) Hypokalemia: Plan: COVID pneumonia Acute hypoxic respiratory failure: Symptoms started on 06/28/2021. Tested positive for COVID on: 07/02 CXR: finding suggestive of viral pneumonia Continue dexamethasone Completed remdesivir today Continue Incentive spirometry and flutter Continue self proning Continue oxygen supplementation and wean as tolerated. CT PE was negative for PE Plan for possible discharge tomorrow Will need 2 step prior to discharge Diet: DMII DVT PPx: Lovenox Code Status:FULL CODE Emergency Contact: David Manriquez [phone] Admission and Anticipated Discharge Date Admission Date: July 07, 2021 Subjective 50-year-old woman with history of prediabetes, cleft lip status post repair who presented with cough, worsening shortness of breath and chest pressure. Being managed for acute hypoxic respiratory failure due to COVID-19 pneumonia. Seen and examined this afternoon. Denies any chest pain Reports exertional dyspnea continues to improve. Still has cough Denied nausea. Anorexia resolving Denies any abdominal pain, diarrhea Denies any palpitations, dizziness Denies any dysuria, frequency, urgency Physical Exam Constitutional: + well hydrated; no acute distress Eyes: PERRL, conjunctivae normal, anicteric sclerae ENMT: external ear and nose normal, oropharynx normal Respiratory: Diminished breath sounds On 2l/min nasal oxygen Cardiovascular: RRR, no murmur, no edema Gastrointestinal (Abdomen): normal bowel sounds, soft, nontender, no hepatosplenomegaly Musculoskeletal: no cyanosis or clubbing, extremities motor strength 5/5 Neurologic: PERRL, EOMI, accommodation nl, no face palsy, no dysarthria Psychiatric: A+Ox3, euthymic affect Results & Data Results & Data ([facility]) Vital Signs (Past 12 Hours) Vital Signs Temp Pulse Pulse Resp BP Pulse Ox 07/12/21 11:50 36.7 C 50 L 20 118/73 95 07/12/21 11:11 55 L 07/12/21 07:47 36.7 C 53 L 16 99/65 L 96 07/12/21 03:32 36.8 C 53 L 16 85/55 L 94 07/12/21 03:00 50 L Laboratory Results Abnormal lab results 07/12/21 Range/Units 07:18 Carbon Dioxide 35 H (21-32) mmol/L Anion Gap 2.0 L (3-11) BUN 22 H (7-18) mg/dl BUN/Creatinine Ratio 28.9 H (10-20) Glucose 170 H (70-99) mg/dl
[2021-07-13 07:28] LABS: Hematocrit (blood only) 43.4 % (37-47); Hemoglobin 14.3 g/dL (12.0-16.0); Mean Corpuscular Hemoglobin 28.4 pg (25-34); Mean Corpuscular Hgb Conc 32.9 g/dL (32-36); Mean Corpuscular Volume 86.1 fL (80-100); Mean Platelet Volume 9.9 fL (7.4-10.4); Platelet Count 303 K/uL (130-400); RDW Coefficient of Variation 12.8 % (11.5-14.5); RDW Standard Deviation 40.2 fL (36.4-46.3); Red Blood Count 5.04 M/uL (4.2-5.4); White Blood Count 7.29 K/uL (4.8-10.8)
[2021-07-13] MEDS: dexAMETHasone 6 MG in SYRINGE 0 ML IV SCH (08:07)
[2021-07-13] MEDS: BENZONATATE 100 MG CAPSULE PO SCH ×2 (08:08→14:18)
[2021-07-13] MEDS: ENOXAPARIN INJ 30 MG/0.3 ML SYR SQ SCH (08:08)
[2021-07-13 08:10] LABS: BUN Creatinine Ratio 25.5 (10-20); Calcium 8.8 mg/dl (8.5-10.1); Creatinine Clr Calc Pharmacy 104.3 ml/min; Est GFR (African American) 112.1 ml/min; Est GFR (Non-African American) 96.7 ml/min; Potassium 4.2 mmol/L (3.5-5.1)
--- NOTE | 2021-07-13 12:54 | Discharge Summary ---
Date of Service July 13, 2021 Admission HPI Per Admitting Provider Pt is a 50 y/o F with hx of prediabetes, cleft lip s/p repair came in to the ER with worsening SOB, cough and chest pressure. She was dx with COVID on 07/02 and her symptoms started on 06/28. She was seen in the ER on 07/05 and sent home on prednisone taper and Zofran. Per pt Zofran helped a lot with N/V and diarrhea but her SOB gotten worse. Denied any hx of COPD/Asthma/Smoking. In the ER pt received 1/2L NS and Dexamethason 10mg IV Admission Exam Per Admitting Provider General:.NAD, well developed, well nourished, average body habitus HEENT:.Normocephalic and atraumatic, Normal Conjunctiva, EOMI, Sclera is non- icteric Lungs:.good air entry b/l with b/l lower lobe rales Heart:.Normal S1, S2, no murmur Abdominal:.ND, Soft, NT MSK:.No deformities of UE and LE, No leg edema Psych:.AAOx3, normal affect Principal Diagnosis COVID 19 pneumonia Acute hypoxic respiratory failure Discharge Exam Constitutional + well hydrated; no acute distress Eyes PERRL, conjunctivae normal, anicteric sclerae ENMT external ear and nose normal, oropharynx normal Respiratory normal respiratory effort, lungs clear to auscultation Cardiovascular RRR, no murmur, no edema Gastrointestinal (Abdomen) normal bowel sounds, soft, nontender, no hepatosplenomegaly Musculoskeletal no cyanosis or clubbing, extremities motor strength 5/5 Neurologic PERRL, EOMI, accommodation nl, no face palsy, no dysarthria Psychiatric A+Ox3, euthymic affect Discharge Data Allergies Allergy/AdvReac Type Severity Reaction Status Date / Time Penicillins Allergy Rash Unverified 07/07/21 10:16 Egg Derived AdvReac Gastrointestinal Unverified 07/07/21 10:16 Upset Consultations 07/07/21 10:08 ED Decision to Admit Stat Ordered Studies 07/09/21 07:51 CT angio chest PE protocol Urgent No pulmonary emboli are identified. There is mild cardiomegaly. No pericardial effusion is noted. No pathologically enlarged thoracic lymph nodes are present. There is no pneumothorax or pleural effusion. Moderate multifocal consolidation and ground glass opacities throughout the lungs are noted. There is no pneumothorax or pleural effusion. There is no cavitation. No acute fracture or suspicious lesion is identified within visualized portions of the bony thorax. IMPRESSION: 1. No pulmonary emboli identified. 2. Multifocal consolidation and groundglass opacities within lungs consistent with viral pneumonia. Hospital Course (1) Pneumonia due to COVID-19 virus: (2) Hypoxia: (3) Prediabetes: (4) Hypokalemia: COVID pneumonia Acute hypoxic respiratory failure: Symptoms started on 06/28/2021. Tested positive for COVID on: 07/02 CXR: finding suggestive of viral pneumonia Was treated with dexamethasone and remdesivir CT PE was negative for PE Was successfully weaned off oxygen 2 step today does not indicate any oxygen needs at rest or with activity. Patient provided education about COVID 19 and discharged home Total Time Total Time Spent Total Time Spent (In Minutes): 40 Total Time Includes: Examination of the Patient, Discharge Planning and Medication Reconciliation Discharge Plan Discharge Items Patient Disposition: Home - Self-Care Reason For Visit: Cough and shortness of breath Discharge Diagnosis: COVID 19 pneumonia Acute hypoxic respiratory failure Activity: Resume your previous activity Non-emergency contact: Primary Care Provider Call non-emergency contact if: you have any medication questions and your symptoms worsen Follow-up/Referrals: Otilia Morris, [Outside Practitioners] - (Date & Time 07/20/2021 12:00 PM Provider Fermin Bo MD [facility] ) Diet: Regular Addtl Attending Provider Instructions: Mrs Su You came to the hospital with cough and shortness of breath. You were evaluated and found to have COVID 19 pneumonia and required oxygen. You were treated and your symptoms improved. You do not need oxygen at this time. You are being discharged home. Please ensure follow up with your Family Doctor and observe home isolation as we discussed. It was a pleasure taking care of you. Addtl [employer] Provider Instructions: Home Isolation COVID-19 Instructions The following information about Home Isolation is from the CDC Website: https://www.cdc.gov/coronavirus/2019-ncov/hcp/bwsbxiwx-zzwzvie-bxuhbq.html Stay home except to get medical care People who are mildly ill with COVID-19 are able to isolate at home during their illness. You should restrict activities outside your home, except for getting medical care. Do not go to work, school, or public areas. Avoid using public transportation, ride-sharing, or taxis. Separate yourself from other people and animals in your home People: As much as possible, you should stay in a specific room and away from other people in your home. Also, you should use a separate bathroom, if available. Animals: You should restrict contact with pets and other animals while you are sick with COVID-19, just like you would around other people. Although there have not been reports of pets or other animals becoming sick with COVID-19, it is still recommended that people sick with COVID-19 limit contact with animals until more information is known about the virus. When possible, have another member of your household care for your animals while you are sick. If you are sick with COVID-19, avoid contact with your pet, including petting, snuggling, being kissed or licked, and sharing food. If you must care for your pet or be around animals while you are sick, wash your hands before and after you interact with pets and wear a face mask. Call ahead before visiting your doctor If you have a medical appointment, call the healthcare provider and tell them that you have or may have COVID-19. This will help the healthcare providers office take steps to keep other people from getting infected or exposed. Wear a face mask You should wear a face mask when you are around other people (e.g., sharing a room or vehicle) or pets and before you enter a healthcare providers office. If you are not able to wear a face mask (for example, because it causes trouble breathing), then people who live with you should not stay in the same room with you, or they should wear a face mask if they enter your room. Cover your coughs and sneezes Cover your mouth and nose with a tissue when you cough or sneeze. Throw used tissues in a lined trash can. Immediately wash your hands with soap and water for at least 20 seconds or, if soap and water are not available, clean your hands with an alcohol-based hand coverstitch elastic attacher that contains at least 60% alcohol. Clean your hands often Wash your hands often with soap and water for at least 20 seconds, especially after blowing your nose, coughing, or sneezing; going to the bathroom; and before eating or preparing food. If soap and water are not readily available, use an alcohol-based hand coverstitch elastic attacher with at least 60% alcohol, covering all surfaces of your hands and rubbing them together until they feel dry. Soap and water are the best option if hands are visibly dirty. Avoid touching your eyes, nose, and mouth with unwashed hands. Avoid sharing personal household items You should not share dishes, drinking glasses, cups, eating utensils, towels, or bedding with other people or pets in your home. After using these items, they should be washed thoroughly with soap and water. Clean all high-touch surfaces everyday High touch surfaces include counters, tabletops, doorknobs, bathroom fixtures, toilets, phones, keyboards, tablets, and bedside tables. Also, clean any surfaces that may have blood, stool, or body fluids on them. Use a household cleaning spray or wipe, according to the label instructions. Labels contain instructions for safe and effective use of the cleaning product including precautions you should take when applying the product, such as wearing gloves and making sure you have good ventilation during use of the product. Monitor your symptoms Seek prompt medical attention if your illness is worsening (e.g., difficulty breathing).Beforeseeking care, call your healthcare provider and tell them that you have, or are being evaluated for, COVID-19. Put on a face mask before you enter the facility. These steps will help the healthcare providers office to keep other people in the office or waiting room from getting infected or exposed. Ask your healthcare provider to call the local or state health department. Persons who are placed under active monitoring or facilitated self- monitoring should follow instructions provided by their local health department or occupational health professionals, as appropriate. When working with your local health department check their available hours. If you have a medical emergency and need to call 911, notify the dispatch personnel that you have, or are being evaluated for COVID-19. If possible, put on a face mask before emergency medical services arrive. Discontinuing home isolation Patients with confirmed COVID-19 should remain under home isolation precautions until the risk of secondary transmission to others is thought to be low. The decision to discontinue home isolation precautions should be made on a [id number] basis, in consultation with healthcare providers and state and local health departments. Pending Studies at Discharge: No Stand-Alone Forms: [facility], Work/School Release, Smoking Cessation Medications and DC Order Prescriptions: New albuterol sulfate 90 mcg/actuation HFA aerosol inhaler 1 inh inhalation Q6H PRN (Reason: shortness of breath or wheezing) Qty: 8.5 RF: 0 Continued ibuprofen 200 mg Tablet 200 mg PO Q6H PRN (Reason: Pain) RF: 0 benzonatate 200 mg capsule 200 mg PO Q6H PRN (Reason: cough) Qty: 20 RF: 0 ondansetron 4 mg tablet,disintegrating 4 mg PO Q6H PRN (Reason: nausea and vomiting) Qty: 20 RF: 0 Discontinued albuterol sulfate 90 mcg/actuation HFA aerosol inhaler 2 puffs inhalation Q4H PRN (Reason: cough) Qty: 8.5 RF: 0 prednisone 20 mg tablet 20 mg PO DAILY Qty: 18 RF: 0 Discharge Orders: Discharge Order (Routine); Ordered 07/13/21 Ordered By: Symone Mock Admission Data Admit Date/Time: 07/07/21 10:29 Attending Provider: Symone Mock I. Admit Provider: Kelsea Fields Primary Care Provider: PCP,NO Other Providers: Kelsea Fields Other Interventions: Discharge Summary Assessment (RN) Last Done: 07/13/21 15:01
== END 2021-07-13 15:40 | disposition home or self-care (01) | DRG 177 ==
LOC: ED 09:03 → 2S 10:29 → SUATTDRO 10:29 → 2S 12:05